=== PATIENT | male | born 1945 | race Caucasian/White ===

== ENCOUNTER → 2018-07-28 | Outpatient (CLI) | payer MEDICARE ==
[~2018-07-28] MED LIST: ACET325T14 PO; DIAZ10TA4 PO; DIAZ5TAB PO; FURO20TA3 PO; METO25TA91 PO; MOEX15TA2 PO; PARO40TA3 PO; POTA10TA6 PO
== END | disposition home or self-care (01) ==
LOC: CVU 12:24
PROVIDERS: ATTEND Family Medicine
DX: I83.892 Varicose veins of left lower extremity with other complications (principal); I82.813 Embolism and thrombosis of superficial veins of lower extremities, bilateral
CPT/HCPCS: 93922; 93970

== ENCOUNTER → 2020-05-18 | Outpatient (CLI) | payer MEDICARE | END | disposition home or self-care (01) | LOC: CVU 10:32 | PROVIDERS: ATTEND Registered Nurse | DX: I08.3 Combined rheumatic disorders of mitral, aortic and tricuspid valves (principal); I11.9 Hypertensive heart disease without heart failure; I48.91 Unspecified atrial fibrillation | CPT/HCPCS: 93306 ==

== ENCOUNTER → 2020-08-25 | Outpatient (CLI) | payer MEDICARE ==
[~2020-08-25] MED LIST changes: +OMNIPAQUE 350 MG/ML, 100ML BOTTLE ONE
== END | disposition home or self-care (01) ==
LOC: CFH 12:53
PROVIDERS: ATTEND Family Medicine
DX: J90 Pleural effusion, not elsewhere classified (principal); R91.1 Solitary pulmonary nodule; J98.11 Atelectasis; M25.78 Osteophyte, vertebrae; N18.30 Chronic kidney disease, stage 3 unspecified
CPT/HCPCS: 71275; 82565; Q9967

== ENCOUNTER → 2020-09-05 | Outpatient (CLI) | payer MEDICARE ==
[~2020-09-05] MED LIST changes: +LIDOCAINE 1%, 10ML ONE; -OMNIPAQUE 350 MG/ML, 100ML BOTTLE ONE
[2020-09-05 18:04] LABS: CELLS COUNTED 174
== END | disposition home or self-care (01) ==
LOC: RAD 14:20
PROVIDERS: ATTEND Family Medicine
DX: J90 Pleural effusion, not elsewhere classified (principal)
CPT/HCPCS: 32555; 82150; 82945; 83615; 83986; 84157; 87070; 87075; 87102; 87116; 87205; 87206; 88112; 88305; 88341; 88342; 89051

== ENCOUNTER 2020-12-01 10:00 | Outpatient (CLI) | payer MEDICARE ==
[~2020-12-01 10:00] MED LIST changes: -LIDOCAINE 1%, 10ML ONE
== END 2020-12-01 23:59 | disposition home or self-care (01) ==
LOC: CFH 10:00
PROVIDERS: ATTEND Registered Nurse
DX: J90 Pleural effusion, not elsewhere classified (principal); J98.11 Atelectasis; R06.02 Shortness of breath; I10 Essential (primary) hypertension; E78.2 Mixed hyperlipidemia; I48.91 Unspecified atrial fibrillation
CPT/HCPCS: 71046

== ENCOUNTER → 2020-12-06 | Outpatient (CLI) | payer MEDICARE ==
[~2020-12-06] MED LIST changes: +LIDOCAINE 1%, 10ML ONE
== END | disposition home or self-care (01) ==
LOC: RAD 10:23
PROVIDERS: ATTEND Registered Nurse
DX: J90 Pleural effusion, not elsewhere classified (principal); R06.02 Shortness of breath
CPT/HCPCS: 32555; 83615; 84157; 87015; 87070; 87116; 87205; 87206; 88112; 88305; 88341; 88342; 89051

== ENCOUNTER 2020-12-20 08:58 | Outpatient (CLI) | payer MEDICARE ==
[~2020-12-20 08:58] MED LIST changes: -LIDOCAINE 1%, 10ML ONE
[2020-12-20] MEDS ORDERED: LIDOCAINE 1%, 10ML ONE (09:24)
== END 2020-12-20 23:59 | disposition home or self-care (01) ==
LOC: RAD 08:58
PROVIDERS: ATTEND Family Medicine
DX: J90 Pleural effusion, not elsewhere classified (principal); J93.9 Pneumothorax, unspecified; Z79.899 Other long term (current) drug therapy
CPT/HCPCS: 32555

== ENCOUNTER 2020-12-28 12:31 | Outpatient (CLI) | payer MEDICARE ==
[2020-12-28] MEDS ORDERED: LIDOCAINE 1%, 10ML ONE (12:37)
== END 2020-12-28 23:59 | disposition home or self-care (01) ==
LOC: RAD 12:31
PROVIDERS: ATTEND Family Medicine
DX: J93.9 Pneumothorax, unspecified (principal)
CPT/HCPCS: 32555

== ENCOUNTER → 2021-01-08 | Outpatient (CLI) | payer MEDICARE ==
[~2021-01-08] MED LIST changes: +LIDOCAINE 1%, 10ML ONE
== END | disposition home or self-care (01) ==
LOC: RAD 12:51
PROVIDERS: ATTEND Family Medicine
DX: J90 Pleural effusion, not elsewhere classified (principal); J93.9 Pneumothorax, unspecified
CPT/HCPCS: 32555

== ENCOUNTER 2021-01-18 08:45 | Outpatient (CLI) | payer MEDICARE ==
[~2021-01-18 08:45] MED LIST changes: -LIDOCAINE 1%, 10ML ONE
[2021-01-18] MEDS ORDERED: LIDOCAINE 1%, 10ML ONE (09:04)
== END 2021-01-18 23:59 | disposition home or self-care (01) ==
LOC: RAD 08:45
PROVIDERS: ATTEND Family Medicine
DX: J90 Pleural effusion, not elsewhere classified (principal); R06.00 Dyspnea, unspecified
CPT/HCPCS: 32555

== ENCOUNTER 2021-01-29 14:42 | Outpatient (CLI) | payer MEDICARE | END 2021-01-29 23:59 | disposition home or self-care (01) | LOC: CVU 14:42 | PROVIDERS: ATTEND Registered Nurse | DX: I08.3 Combined rheumatic disorders of mitral, aortic and tricuspid valves (principal); I48.0 Paroxysmal atrial fibrillation | CPT/HCPCS: 93306 ==

== ENCOUNTER 2021-02-01 13:42 | Outpatient (CLI) | payer MEDICARE ==
[2021-02-01] MEDS ORDERED: LIDOCAINE 1%, 10ML ONE (13:53)
== END 2021-02-01 23:59 | disposition home or self-care (01) ==
LOC: RAD 13:42
PROVIDERS: ATTEND Family Medicine
DX: J90 Pleural effusion, not elsewhere classified (principal); R91.8 Other nonspecific abnormal finding of lung field; R06.02 Shortness of breath
CPT/HCPCS: 32555

== ENCOUNTER → 2021-02-12 | Outpatient (CLI) | payer MEDICARE ==
[~2021-02-12] MED LIST changes: +LIDOCAINE 1%, 10ML ONE
== END | disposition home or self-care (01) ==
LOC: RAD 10:26
PROVIDERS: ATTEND Family Medicine
DX: J90 Pleural effusion, not elsewhere classified (principal); I25.10 Atherosclerotic heart disease of native coronary artery without angina pectoris; J94.8 Other specified pleural conditions; N28.1 Cyst of kidney, acquired; K80.20 Calculus of gallbladder without cholecystitis without obstruction; Z98.84 Bariatric surgery status
CPT/HCPCS: 32555; 71250; 74176

== ENCOUNTER 2021-03-01 10:57 | Outpatient (CLI) | payer MEDICARE ==
[~2021-03-01 10:57] MED LIST changes: -ATOR10TA PO; -BUSP15TA PO; -LOSA100T14 PO; -MELO15TA24 PO; -RIVA20TA PO
[2021-03-01] MEDS ORDERED: LIDOCAINE 1%, 10ML ONE (11:09)
[2021-03-01] MEDS ORDERED: RIVA20TA PO (12:38)
[2021-03-01] MEDS ORDERED: ATOR10TA PO (12:38)
[2021-03-01] MEDS ORDERED: MELO15TA24 PO (12:38)
[2021-03-01] MEDS ORDERED: BUSP15TA PO (12:38)
[2021-03-01] MEDS ORDERED: LOSA100T14 PO (12:38)
== END 2021-03-01 23:59 | disposition home or self-care (01) ==
LOC: RAD 10:57
PROVIDERS: ATTEND Family Medicine
DX: J93.9 Pneumothorax, unspecified (principal); R05 Cough
CPT/HCPCS: 32555

== ENCOUNTER → 2021-03-01 | Outpatient (CLI) | payer MEDICARE ==
[~2021-03-01] MED LIST changes: +ATOR10TA PO; +BUSP15TA PO; -LIDOCAINE 1%, 10ML ONE; +LOSA100T14 PO; +MELO15TA24 PO; +RIVA20TA PO
== END | disposition home or self-care (01) ==
LOC: STAR 11:02
PROVIDERS: ATTEND Thoracic Surgery (Cardiothoracic Vascular Surgery)
DX: Z01.818 Encounter for other preprocedural examination (principal); I48.91 Unspecified atrial fibrillation; I45.10 Unspecified right bundle-branch block; Z20.822 Contact with and (suspected) exposure to COVID-19
CPT/HCPCS: 93005; U0003; U0005